=== PATIENT | female | born 1995 | race Caucasian/White ===

== ENCOUNTER 2019-03-09 13:44 | Emergency (ER) | payer MEDICAID ==
[2019-03-09 14:05] VITALS: BP 109/62
--- NOTE | 2019-03-09 14:35 | UC ---
Ear Complaint HPI - HPI Summary HPI Summary: 23 yo female presents with right ear/throat pain since this morning. She tells me that she went swimming in a pond yesterday and developed these symptoms today. She is eating and drinking well and tolerating po without difficulty. She has not taken anything OTC for her symptoms. Denies fever, chills, sinus symptoms, cough, rash. - History of Current Complaint Chief Complaint: UCEar Stated Complaint: EAR PAIN Time Seen by Provider: 03/09/19 14:34 Hx Obtained From: Patient Hx Last Menstrual Period: 01/14/19 Onset/Duration: Sudden Onset Severity Initially: Moderate Severity Currently: Moderate Pain Intensity: 6 Pain Scale Used: 0-10 Numeric - Allergies/Home Medications Allergies/Adverse Reactions: Allergies Allergy/AdvReac Type Severity Reaction Status Date / Time bees Allergy anaph Uncoded 03/09/19 14:05 onions Allergy anaph Uncoded 03/09/19 14:06 PMH/Surg Hx/FS Hx/Imm Hx - Additional Past Medical History Additional PMH: None - Surgical History Surgical History: None - Family History Known Family History: Positive: None - Social History Lives: With Family Alcohol Use: None Substance Use Type: None Smoking Status (MU): Light Every Day Tobacco Smoker Review of Systems All Other Systems Reviewed And Are Negative: Yes Constitutional: Positive: Negative Skin: Positive: Negative Eyes: Positive: Negative ENT: Positive: Sore Throat, Ear Ache Respiratory: Positive: Negative Cardiovascular: Positive: Negative Gastrointestinal: Positive: Negative Neurovascular: Positive: Negative Neurological: Positive: Negative Psychological: Positive: Negative Physical Exam - Summary Physical Exam Summary: GENERAL: NAD. WDWN. No pain distress. SKIN: No rashes, sores, lesions, or open wounds. HEENT: Head: AT/NC Eyes: Conjunctiva clear without inflammation or discharge. Ears: Hearing grossly normal. TMs intact, no bulging, erythema, or edema. RIGHT EAR canal with mild edema and slight clear discharge. NTTP with auricular manipulation. Nose: Nasal mucosa pink and moist. NTTP maxillary and frontal sinus. Throat: Posterior oropharynx mild erythema. RIGHT 2+ tonsillar enlargement. Approx 3mm ulceration with yellow/brownish borders at the 12 o' clock position of the right tonsil. Uvula midline. No hoarse voice or muffled voice. NECK: Supple. Mild right tonsillar LAD that is TTP. CHEST: CTAB. No r/r/w. No accessory muscle use. Breathing comfortably and in no distress. CV: RRR. Without m/r/g. Pulses intact. Cap refill <2seconds NEURO: Alert. PSYCH: Age appropriate behavior. Triage Information Reviewed: Yes Vital Signs: Initial Vital Signs Temp 98.2 F 03/09/19 14:02 Pulse 93 03/09/19 14:02 Resp 17 03/09/19 14:02 BP 109/62 03/09/19 14:02 Pulse Ox 100 03/09/19 14:02 Vital Signs Reviewed: Yes Ear Complaint Course/Dx - Course Course Of Treatment: I obtained a culture of the ulceration on her right tonsils. Will treat her with augmentin for pharyngitis/tonsillitis and await culture results and change treatment as needed. - Differential Dx/Diagnosis Provider Diagnosis: Tonsillitis Discharge - Sign-Out/Discharge Documenting (check all that apply): Patient Departure All imaging exams completed and their final reports reviewed: No Studies - Discharge Plan Condition: Stable Disposition: HOME Prescriptions: Amoxicillin/Clavulanate TAB* [Augmentin TAB 875*] 875 mg PO BID #14 tab Patient Education Materials: Otitis Externa (ED), Tonsillitis (ED) Referrals: Richi Flores, BARREL LAPPER [Primary Care Provider] - Additional Instructions: If you develop a fever, shortness of breath, chest pain, new or worsening symptoms - please call your PCP or go to the ED immediately. - Billing Disposition and Condition Condition: STABLE Disposition: Home
--- NOTE | 2019-03-10 07:03 | UC ---
- Progress Note Progress Note: MRSA neg culture pending Pt on Augmentin no change kadej 03/10/19 Course/Dx - Diagnoses Provider Diagnoses: Tonsillitis Discharge - Sign-Out/Discharge Documenting (check all that apply): Post-Discharge Follow Up All imaging exams completed and their final reports reviewed: No Studies - Discharge Plan Condition: Stable Disposition: HOME Prescriptions: Amoxicillin/Clavulanate TAB* [Augmentin TAB 875*] 875 mg PO BID #14 tab Patient Education Materials: Otitis Externa (ED), Tonsillitis (ED) Referrals: Richi Flores, LEG BREAKER [Primary Care Provider] - Additional Instructions: If you develop a fever, shortness of breath, chest pain, new or worsening symptoms - please call your PCP or go to the ED immediately. - Billing Disposition and Condition Condition: STABLE Disposition: Home
--- NOTE | 2019-03-12 17:45 | UC ---
- Progress Note Progress Note: Cx returned and + for Fusobacterium Necrophorum. Please call pt. to see if she has improvement on Augmentin. If she the same or worse have her go to the ED for possible CT. Course/Dx - Diagnoses Provider Diagnoses: Tonsillitis Discharge - Sign-Out/Discharge Documenting (check all that apply): Post-Discharge Follow Up All imaging exams completed and their final reports reviewed: No Studies - Discharge Plan Condition: Stable Disposition: HOME Prescriptions: Amoxicillin/Clavulanate TAB* [Augmentin TAB 875*] 875 mg PO BID #14 tab Patient Education Materials: Otitis Externa (ED), Tonsillitis (ED) Referrals: Richi Flores, OLEOMARGARINE MAKER [Primary Care Provider] - Additional Instructions: If you develop a fever, shortness of breath, chest pain, new or worsening symptoms - please call your PCP or go to the ED immediately. - Billing Disposition and Condition Condition: STABLE Disposition: Home
--- NOTE | 2019-03-12 17:50 | UC ---
- Progress Note Progress Note: Of note metronidazole also tx's this Course/Dx - Diagnoses Provider Diagnoses: Tonsillitis Discharge - Sign-Out/Discharge Documenting (check all that apply): Post-Discharge Follow Up All imaging exams completed and their final reports reviewed: No Studies - Discharge Plan Condition: Stable Disposition: HOME Prescriptions: Amoxicillin/Clavulanate TAB* [Augmentin TAB 875*] 875 mg PO BID #14 tab Patient Education Materials: Otitis Externa (ED), Tonsillitis (ED) Referrals: Richi Flores, TIP BANDING MACHINE OPERATOR [Primary Care Provider] - Additional Instructions: If you develop a fever, shortness of breath, chest pain, new or worsening symptoms - please call your PCP or go to the ED immediately. - Billing Disposition and Condition Condition: STABLE Disposition: Home
== END 2019-03-09 14:51 | disposition home or self-care (01) ==
LOC: UCEAST 13:44
DX: J03.90 Acute tonsillitis, unspecified (principal); F17.210 Nicotine dependence, cigarettes, uncomplicated
CPT/HCPCS: 87070; 87076; 87077; 99202; G0463

== ENCOUNTER 2019-10-27 18:22 | Emergency (ER) | payer OTHER ==
[2019-10-27] MEDS ORDERED: Benzocaine/Butamben/Tetracain (CETACAINE - SINGLE USE) 5 gm TOPICAL ONE (19:32)
[2019-10-27] MEDS ORDERED: Lidocaine 2% VISCOUS* 15 ML UDC SWISH SPIT ONE (19:32)
[2019-10-27] MEDS ORDERED: Clindamycin CAP* 150 MG PO ONE (20:15)
--- NOTE | 2019-10-27 20:15 | ED ---
Throat Pain/Nasal Congestion - HPI Summary HPI Summary: 23 year old female presents with sore throat for the past week. She states she was diagnosed with strep and was taking amoxicillin and was feeling better. She states that today she noticed that there is more swelling to the right side of her throat and that the area popped today and she had drainage has been coming up. States that she has had whitest discharge. She states it hurts to swallow. She has not been drooling. She denies any change in voice. She states she is unable to open her mouth all the way. she denies any chest pain or shortness of breath. She is 10 weeks . - History of Current Complaint Chief Complaint: EDThroatPain Time Seen by Provider: 10/27/19 19:07 - Allergies/Home Medications Allergies/Adverse Reactions: Allergies Allergy/AdvReac Type Severity Reaction Status Date / Time bees Allergy anaph Uncoded 10/27/19 18:42 onions Allergy anaph Uncoded 10/27/19 18:42 Home Medications: Home Medications Amoxicillin PO (*) [Amoxicillin 875 MG (*)] 1 tab PO BID 10/27/19 [History Confirmed 10/27/19] PMH/Surg Hx/FS Hx/Imm Hx Endocrine/Hematology History: Denies: Hx Diabetes Cardiovascular History: Denies: Hx Congestive Heart Failure, Hx Hypertension History: Denies: Hx Renal Disease Infectious Disease History: No Infectious Disease History: Denies: Traveled Outside the [place] in Last 30 Days - Family History Known Family History: Positive: None - Social History Alcohol Use: None Substance Use Type: Reports: None Smoking Status (MU): Light Every Day Tobacco Smoker Review of Systems Negative: Fever Positive: Sore Throat Negative: Chest Pain Negative: Shortness Of Breath All Other Systems Reviewed And Are Negative: Yes Physical Exam Triage Information Reviewed: Yes Vital Signs On Initial Exam: Initial Vitals Temp Pulse Resp BP Pulse Ox 98.3 F 84 16 134/70 99 10/27/19 18:38 10/27/19 18:38 10/27/19 18:38 10/27/19 18:38 10/27/19 18:38 Vital Signs Reviewed: Yes Appearance: Positive: Well-Appearing Skin: Positive: Warm, Dry Head/Face: Positive: Normal Head/Face Inspection Eyes: Positive: Normal, EOMI, FABRIZIO, Conjunctiva Clear ENT: Positive: Pharyngeal erythema, TMs normal, Tonsillar swelling - right, Uvula midline, Other - swelling to soft palate on left side. Negative: Trismus , Muffled voice Neck: Positive: Supple, Nontender, No Lymphadenopathy Respiratory/Lung Sounds: Positive: Clear to Auscultation, Breath Sounds Present Cardiovascular: Positive: Normal, RRR Abdomen Description: Positive: Nontender, Soft Bowel Sounds: Positive: Present Musculoskeletal: Positive: Normal Neurological: Positive: Normal Psychiatric: Positive: Normal Procedures - Sedation Patient Received Moderate/Deep Sedation with Procedure: No Diagnostics - Vital Signs Vital Signs Temp Pulse Resp BP Pulse Ox 10/27/19 18:38 98.3 F 84 16 134/70 99 - Laboratory Lab Statement: Any lab studies that have been ordered have been reviewed, and results considered in the medical decision making process. EENT Course/Dx - Course Course Of Treatment: 23 year old female presents with sore throat for the past week. She states she was diagnosed with strep and was taking amoxicillin and was feeling better. She states that today she noticed that there is more swelling to the right side of her throat and that the area popped today and she had drainage has been coming up. States that she has had whitest discharge. She states it hurts to swallow. She has not been drooling. She denies any change in voice. She states she is unable to open her mouth all the way. she denies any chest pain or shortness of breath. She is 10 weeks . On exam right tonsil enlarged. Uvula midline. appears like peritonsillar abscess. scant blood drainage noted from area and patient ended up vomiting and some pus came up. Will place a course of clindamycin. Told to follow up with ENT. Told if develop worsening symptoms to return. Patient understands and agrees the plan. - Differential Diagnoses Differential Diagnoses: Pharyngitis, Tonsilitis, Other - peritonsillar abscess - Diagnoses Provider Diagnoses: Peritonsillar abscess Discharge ED - Sign-Out/Discharge Documenting (check all that apply): Patient Departure - Discharge Plan Condition: Good Disposition: HOME Prescriptions: Clindamycin Cap(NF) [Clindamycin Cap 300 mg Cap(NF)] 300 mg PO TID #29 cap Dexamethasone TAB* [Decadron TAB*] 4 mg PO DAILY #5 tab Metoclopramide TAB* [Reglan TAB*] 10 mg PO Q6H #12 tab Patient Education Materials: Peritonsillar Abscess (ED) Referrals: No Primary Care Phys,NOPCP [Primary Care Provider] - Additional Instructions: Take clindamycin three times a day for 10 days Take decadron once a day for 5 days if develop increase swelling take reglan every 6 hours for nausea Follow up with ENT gargle salt water Can use cough drops or products such as cloraseptic spray Return to ED if develop fever does not respond to Tylenol or ibuprofen, inability to swallow, or difficulty breathing or any new or worsening symptoms - Billing Disposition and Condition Condition: GOOD Disposition: Home
[2019-10-27 20:59] VITALS: BP 122/74
== END 2019-10-27 20:45 | disposition home or self-care (01) ==
LOC: ED 18:22
DX: J36 Peritonsillar abscess (principal); F17.210 Nicotine dependence, cigarettes, uncomplicated
CPT/HCPCS: 99282; A9270-GY

== ENCOUNTER 2020-04-19 12:28 | Inpatient (IN) ==
[2020-04-19] MEDS ORDERED: Lactated Ringers 1000 ml BAG 1,000 ML IV ONE (13:49)
[2020-04-19] MEDS ORDERED: Lactated Ringers 1000 ml BAG 1,000 ML IV SCH (14:00)
[2020-04-19] MEDS: Betamethasone 6 mg/ml 5 ml VIAL IM SCH (14:37)
[2020-04-19 16:48] LABS: ABS Eosinophils 0.1 10^3/ul (0-0.6); ABS Lymphocytes 1.5 10^3/ul (1.0-4.8); ABS Monocytes 0.5 10^3/ul (0-0.8); ABS Neutrophils 7.4 10^3/ul (1.5-7.7); Eosinophil % 0.8 %; Hematocrit 35 % (35-47); Hemoglobin 12.2 g/dL (12.0-16.0); Lymphocyte % 15.4 %; Mean Corpuscular HGB Conc 35 g/dL (31-36); Mean Corpuscular Hemoglobin 31 pg (27-31); Mean Corpuscular Volume 88 fL (80-97); Mean Platelet Volume 9.1 fL (7.4-10.4); Nucleated Red Blood Cells % 0.1; Platelet Count 270 10^3/uL (150-450); Red Blood Count 3.98 10^6 /uL (3.70-4.87); Red Cell Distribution Width 14 % (10-15); White Blood Count 9.5 10^3/uL (3.5-10.8)
[2020-04-19] MEDS ORDERED: Penicillin G Potassium IV 5,000,000 UNITS in NS 0.9% 100 ml BAG 100 ML IVPB ONE (19:36)
[2020-04-20] MEDS: Penicillin G Potassium IV 3,000,000 UNITS in NS 0.9% 100 ml BAG 100 ML IVPB SCH ×5 (00:04→23:10)
[2020-04-20 00:38] LABS: Urine Benzodiazepine Screen None Detected (None Detect); Urine Cannabinoids Screen Presumptive Positive (None Detect); Urine Opiates Screen None Detected (None Detect)
[2020-04-20] MEDS: Betamethasone 6 mg/ml 5 ml VIAL IM SCH (14:39)
[2020-04-21 20:29] LABS: ABS Lymphocytes 2.2 10^3/ul (1.0-4.8); ABS Monocytes 1.3 10^3/ul (0-0.8); ABS Neutrophils 7.6 10^3/ul (1.5-7.7); Eosinophil % 0.1 %; Hematocrit 31 % (35-47); Hemoglobin 10.8 g/dL (12.0-16.0); Lymphocyte % 19.6 %; Mean Corpuscular HGB Conc 35 g/dL (31-36); Mean Corpuscular Hemoglobin 31 pg (27-31); Mean Corpuscular Volume 89 fL (80-97); Mean Platelet Volume 8.8 fL (7.4-10.4); Platelet Count 230 10^3/uL (150-450); Red Blood Count 3.51 10^6 /uL (3.70-4.87); Red Cell Distribution Width 14 % (10-15); White Blood Count 11.1 10^3/uL (3.5-10.8)
[2020-04-21] MEDS ORDERED: Oxytocin in LR 20 UNITS/1,000 ML BAG IVPB ONE (21:52)
[2020-04-21] MEDS ORDERED: OBEPIDURAL 250 ML EPIDURAL ONE (23:24)
[2020-04-21] MEDS ORDERED: Lidocaine 1% w EPI 1:200,000 SDV 30 ML VIAL ONE (23:44)
[2020-04-22] MEDS ORDERED: Phenylephrine 40 mcg/mL 10mL (400mcg) SYRINGE IV PUSH PRN ×2 (00:05)
[2020-04-22] MEDS ORDERED: Lactated Ringers 1000 ml BAG 1,000 ML IV ONE (00:05)
[2020-04-22] MEDS ORDERED: Sodium Citrate/Citric Acid LIQ 15 ML UDC PO PRN (00:05)
[2020-04-22] MEDS ORDERED: Lactated Ringers 1000 ml BAG 1,000 ML IV SCH ×2 (01:00→18:00)
[2020-04-22] MEDS ORDERED: OBEPIDURAL 250 ML EPIDURAL SCH (01:00)
[2020-04-22] MEDS ORDERED: Oxytocin in LR 20 UNITS/1,000 ML BAG IVPB ONE (13:36)
[2020-04-22] MEDS ORDERED: Measles, Mumps,Rubella VACC 0.5 ML/VIAL SUBCUT ONE (17:47)
[2020-04-22] MEDS ORDERED: Witch Hazel PAD JAR TOPICAL PRN (17:47)
[2020-04-22] MEDS ORDERED: Glycerin ADULT 2.4 gm SUPP PR PRN (17:47)
[2020-04-22] MEDS ORDERED: Oxytocin in LR 20 UNITS/1,000 ML BAG IVPB SCH (18:00)
[2020-04-22] MEDS ORDERED: Lidocaine 1% VIAL 10 MG/ML VIAL ONE (21:07)
[2020-04-23 07:49] LABS: ABS Lymphocytes 2.3 10^3/ul (1.0-4.8); ABS Monocytes 1.1 10^3/ul (0-0.8); ABS Neutrophils 8.6 10^3/ul (1.5-7.7); Eosinophil % 0.2 %; Hematocrit 28 % (35-47); Hemoglobin 9.7 g/dL (12.0-16.0); Lymphocyte % 19.1 %; Mean Corpuscular HGB Conc 35 g/dL (31-36); Mean Corpuscular Hemoglobin 31 pg (27-31); Mean Corpuscular Volume 88 fL (80-97); Mean Platelet Volume 9.1 fL (7.4-10.4); Platelet Count 203 10^3/uL (150-450); Red Blood Count 3.17 10^6 /uL (3.70-4.87); Red Cell Distribution Width 14 % (10-15); White Blood Count 12.1 10^3/uL (3.5-10.8)
[2020-04-23] MEDS: Dibucaine 1% OINT 28.35 GM TUBE PR PRN (13:35)
[2020-04-24 08:06] VITALS: BP 142/78
[2020-04-24] MEDS: Dibucaine 1% OINT 28.35 GM TUBE PR PRN (14:32)
== END 2020-04-24 15:10 | disposition home or self-care (01) | DRG 560 ==
LOC: MCHOBOUT 12:28 → MCHNUR 13:53 → MCHOB 14:02
PROVIDERS: ADMIT Advanced Practice Midwife; ATTEND Midwife